=== PATIENT | female | born 1945 | race Two or more races ===

== ENCOUNTER 2018-04-26 22:47 | Emergency (ER) | payer MEDICARE, OTHER ==
[~2018-04-26] VITALS: Ht 157.5 cm; Wt 90.7 kg
--- NOTE | 2018-04-26 22:49 | NUR ---
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 1 NITRO SPRAY AND 162 ASA GIVEN IN FEILD. AA/OX4. SKINS PINK WARM DRY. NAUSEA PRESENT WITH NO VOMITING. PRESSURE TYPE PAIN, NON RADIATING. HEADACHE PRESENT. B/L BREAST CA. PT STATED SHE HAD TX EARLIER TODAY. PORT ACCESS LT UPPER CHEST. AWAITING MD ORDERS/EVAL.
[2018-04-26 23:34] LABS: RED BLOOD CELL COUNT(AUTO) 2.78 MIL/uL (4.0-5.2); WHITE BLOOD COUNT (AUTO) 4.3 K/uL (4.3-11.0)
[2018-04-26 23:35] LABS: BASOPHILS % (AUTO) 0.2 % (0.0-2.0); EOSINOPHILS % (AUTO) 1.5 % (0.0-6.0); HEMATOCRIT 28 % (33-45); HEMOGLOBIN 9.4 g/dL (11.5-14.8); LYMPHOCYTES % (AUTO) 15.8 % (20.0-44.0); MEAN CORPUSCULAR HEMOGLOBIN 34 PG (26.0-33.0); MEAN CORPUSCULAR HGB CONC 34 g/dl (31.0-36.0); MEAN CORPUSCULAR VOLUME 100 fL (82-100); MONOCYTES % (AUTO) 21.1 % (2.0-12.0); NEUTROPHILS % (AUTO) 61.4 % (43.0-81.0); PLATELET COUNT (AUTO) 222 /CMM (150-450); RDW COEFFICIENT OF VARIATION 16.3 (11.5-15.0)
[2018-04-26 23:48] LABS: INR 1.03 (0.87-1.13)
[2018-04-26 23:52] LABS: CALCIUM, SERUM 8.9 mg/dL (8.5-10.1); CARBON DIOXIDE 26 mmol/L (21-32); CHLORIDE 108 mmol/L (98-107); CREATININE 0.8 mg/dL (0.6-1.3); GLUCOSE 103 mg/dL (74-106); POTASSIUM 4.3 mmol/L (3.5-5.1); SODIUM SERUM 142 mmol/L (136-145); UREA NITROGEN, BLOOD 12 mg/dL (7-18)
[2018-04-26 23:53] LABS: TROPONIN I < 0.017 ng/mL (0.00-0.056)
[2018-04-26 23:55] LABS: BAND % (MANUAL) 11 % (0.0-5.0); LYMPHOCYTES % (MANUAL) 24 % (16-48); MONOCYTES % (MANUAL) 21 % (0-11.0); NEUTROPHILS % (MANUAL) 42 (42-76)
[2018-04-26 23:56] LABS: EOSINOPHILS % (MANUAL) 2 % (0-4)
[2018-04-26] MEDS ORDERED: MORPHINE SULFATE INJ 2 MG/ML DISP.SYRIN ONE (23:58)
[2018-04-26] MEDS ORDERED: ONDANSETRON HCL/PF 4 MG/2 ML VIAL ONE (23:58)
[2018-04-26] MEDS ORDERED: ASPIRIN 81 MG TAB.CHEW ONE (23:58)
[2018-04-27] MEDS ORDERED: ASPIRIN 81 MG TAB.CHEW PO ONE
[2018-04-27] MEDS ORDERED: MORPHINE SULFATE INJ 2 MG/ML DISP.SYRIN IV ONE
[2018-04-27] MEDS ORDERED: ONDANSETRON HCL/PF - ER 4 MG/2 ML VIAL IV ONE
--- NOTE | 2018-04-27 00:20 | NUR ---
Patient does not wish to proceed with medical care recommended by Dr. TEJEDA. Patient given information related to possible complications, up to and including , which could occur as a result of leaving the hospital at this time. Patient verbalizes understanding of risks involved due to leaving against medical advice. Patient has signed AMA form. PT AMBULATORY WITH STEADY GAIT UPON LEAVING. INFORMED TO NOT OPERATE/ DRIVE HEAVY MACHINERY. IV removed. Catheter intact and site benign. Pressure and 4x4 applied to site. No bleeding noted. PT GIVEN COPY OF LABS.
[2018-04-27 00:29] VITALS: BP 166/86
== END 2018-04-27 00:30 | disposition left against medical advice (07) ==
LOC: ER 22:56
DX: R07.89 Other chest pain (principal)
CPT/HCPCS: 36415; 71045; 80048; 84484; 85025; 85730; 93005; 96374; 96375; 99285; A4606; J2270; J2405 ×3; Z7610

== ENCOUNTER 2019-02-19 14:24 | Emergency (ER) | payer MEDICARE, OTHER ==
[~2019-02-19] VITALS: Ht 157.5 cm; Wt 99.8 kg
--- NOTE | 2019-02-19 14:30 | NUR ---
PT CHRIS FROM HOME FOR S/P FALL, C/O LT HIP PAIN; PT AAOX4, PT ON MONITOR, NAD NOTED, VSS, PENDING MD GE
[2019-02-19] MEDS ORDERED: ONDANSETRON HCL/PF 4 MG/2 ML VIAL IVP ONE (15:00)
[2019-02-19] MEDS ORDERED: KETOROLAC TROMETHAMINE INJ 30 MG/ML VIAL IV ONE (15:00)
[2019-02-19] MEDS ORDERED: IV NS 0.9% 500 ML BAG IV ONE (15:00)
[2019-02-19] MEDS ORDERED: KETOROLAC TROMETHAMINE 15 MG/ML VIAL ONE (15:03)
[2019-02-19] MEDS ORDERED: ONDANSETRON HCL/PF 4 MG/2 ML VIAL ONE (15:03)
[2019-02-19 15:12] LABS: CARBON DIOXIDE 26 mmol/L (21-32); CHLORIDE 105 mmol/L (98-107); CREATININE 0.8 mg/dL (0.6-1.3); GLUCOSE 111 mg/dL (74-106); POTASSIUM 4.4 mmol/L (3.5-5.1); SODIUM SERUM 139 mmol/L (136-145); UREA NITROGEN, BLOOD 23 mg/dL (7-18)
[2019-02-19 15:44] LABS: BASOPHILS % (AUTO) 0.3 % (0.0-2.0); EOSINOPHILS % (AUTO) 1.5 % (0.0-6.0); HEMATOCRIT 35 % (33-45); HEMOGLOBIN 12.1 g/dL (11.5-14.8); LYMPHOCYTES # (AUTO) 0.8 /CMM (0.8-4.8); LYMPHOCYTES % (AUTO) 9.3 % (20.0-44.0); MEAN CORPUSCULAR HGB CONC 34 g/dl (31.0-36.0); MEAN CORPUSCULAR VOLUME 89 fL (82-100); MONOCYTES # (AUTO) 0.7 /CMM (0.1-1.30); MONOCYTES % (AUTO) 7.9 % (2.0-12.0); NEUTROPHILS # (AUTO) 7.2 /CMM (1.8-8.9); PLATELET COUNT (AUTO) 142 /CMM (150-450); RED BLOOD CELL COUNT(AUTO) 3.98 MIL/uL (4.0-5.2); WHITE BLOOD COUNT (AUTO) 8.8 K/uL (4.3-11.0)
[2019-02-19 16:34] VITALS: BP 159/90
--- NOTE | 2019-02-19 16:34 | NUR ---
Patient discharged to home in stable condition. Written and verbal after care instructions given. Patient verbalizes understanding of instruction. IV removed. Catheter intact and site benign. Pressure and 4x4 applied to site. No bleeding noted.
== END 2019-02-19 16:40 | disposition home or self-care (01) ==
LOC: ER 14:27
DX: S73.192A Other sprain of left hip, initial encounter (principal); S50.312A Abrasion of left elbow, initial encounter; M45.5 Ankylosing spondylitis of thoracolumbar region; I11.0 Hypertensive heart disease with heart failure; I50.9 Heart failure, unspecified; Z85.3 Personal history of malignant neoplasm of breast; W18.39XA Other fall on same level, initial encounter; Y93.01 Activity, walking, marching and hiking; Y92.89 Other specified places as the place of occurrence of the external cause; Y99.8 Other external cause status
CPT/HCPCS: 36415; 71045; 72100; 72170; 73070; 80048; 85025; 85730; 96374; 96375; 99284; J1885; J2405; J7040

== ENCOUNTER 2025-05-01 16:23 | Emergency (ER) | payer MEDICARE, OTHER ==
[~2025-05-01] VITALS: Ht 154.9 cm; Wt 93.0 kg
[2025-05-01] MEDS ORDERED: PRED50TA PO (17:25)
[2025-05-01] MEDS ORDERED: TRAM50TA2 PO (17:25)
[2025-05-01] MEDS ORDERED: VALA10002 PO (17:25)
[2025-05-01] MEDS ORDERED: TRAMADOL HCL 50 MG TABLET ONE (17:38)
[2025-05-01] MEDS: TRAMADOL HCL 50 MG TABLET PO ONE (17:46)
[2025-05-01 18:13] VITALS: BP 150/95; TEMP 98.6; O2SAT 98
== END 2025-05-01 18:13 | disposition home or self-care (01) ==
LOC: ER 16:40
DX: B02.9 Zoster without complications (principal); R07.89 Other chest pain; I10 Essential (primary) hypertension; Z85.3 Personal history of malignant neoplasm of breast; Z86.79 Personal history of other diseases of the circulatory system
CPT/HCPCS: 99283; J7512

== ENCOUNTER 2025-05-22 18:15 | Emergency (ER) | payer MEDICARE, OTHER ==
[~2025-05-22] VITALS: Ht 157.5 cm; Wt 88.9 kg
[~2025-05-22 18:15] MED LIST: PRED50TA PO; TRAM50TA2 PO; VALA10002 PO
[2025-05-22 18:29] VITALS: TEMP 98
[2025-05-22 19:36] LABS: CALCIUM, SERUM 8.8 mg/dL (8.5-10.1); CREATININE 1.4 mg/dL (0.6-1.3); SODIUM SERUM 135 mmol/L (136-145); UREA NITROGEN, BLOOD 36 mg/dL (7-18)
[2025-05-22 19:37] LABS: ASPARTATE AMINOTRANSFERASE 21 U/L (15-37); TOTAL PROTEIN, SERUM 7.0 g/dL (6.4-8.2)
[2025-05-22 19:38] LABS: PLATELET COUNT (AUTO) 138 K/uL (150-450); RED BLOOD CELL COUNT(AUTO) 3.91 MIL/uL (4.0-5.2); RED CELL DISTRIBUTION WIDTH 13.7 % (11.5-15.0); WHITE BLOOD COUNT (AUTO) 6.1 K/uL (4.3-11.0)
[2025-05-22] MEDS: IV NS 0.9% 1,000 ML BAG IV ONE ×2 (19:42→21:01)
[2025-05-22] MEDS ORDERED: IV NS 0.9% 250 ML IV ONE (19:43)
[2025-05-22] MEDS ORDERED: IOHEXOL-300 100 ML VIAL IV ONE (19:43)
[2025-05-22] MEDS ORDERED: MECLIZINE HCL 25 MG TABLET ONE (20:55)
[2025-05-22 21:00] LABS: APPEARANCE,URINE CLEAR (CLEAR); BLOOD, URINE NEGATIVE Ery/uL (NEGATIVE); LEUKOCYTE ESTERASE ,URINE NEGATIVE (NEGATIVE); NITRITE, URINE NEGATIVE (NEGATIVE); UGLUCOSE NEGATIVE (NEGATIVE)
[2025-05-22] MEDS: MECLIZINE HCL 25 MG TABLET PO ONE (21:02)
[2025-05-22] MEDS ORDERED: MECL-159 PO (21:24)
[2025-05-22 22:11] VITALS: BP 136/80; O2SAT 98
== END 2025-05-22 22:11 | disposition home or self-care (01) ==
LOC: ER 18:19
DX: N28.9 Disorder of kidney and ureter, unspecified (principal); R53.83 Other fatigue; R19.00 Intra-abdominal and pelvic swelling, mass and lump, unspecified site; R42 Dizziness and giddiness; R53.1 Weakness; R10.9 Unspecified abdominal pain; E78.5 Hyperlipidemia, unspecified; I11.0 Hypertensive heart disease with heart failure; I50.9 Heart failure, unspecified; Z79.52 Long term (current) use of systemic steroids; Z79.624 Long term (current) use of inhibitors of nucleotide synthesis; Z85.3 Personal history of malignant neoplasm of breast; Z90.13 Acquired absence of bilateral breasts and nipples; Z92.21 Personal history of antineoplastic chemotherapy
CPT/HCPCS: 99285; 70450; 96360; 96361; 93005; 74177; 85025; 83690; 81003; 36415; 80053; 84484; J8597; J7050; Q9967; 87086-TC